=== PATIENT | male | born 1965 | race Caucasian/White ===

== ENCOUNTER 2016-10-31 16:34 | Emergency (ER) | payer OTHER, MEDICAID ==
[~2016-10-31] VITALS: Ht 147.3 cm; Wt 54.4 kg
--- NOTE | 2016-10-31 16:34 | NUR ---
Patient was BIBA (Bayron balderas) at this time.
[2016-10-31 16:40] VITALS: BP 98/70
[2016-10-31] MEDS ORDERED: ONFI20 MG GT ×2 (16:57)
[2016-10-31] MEDS ORDERED: CIPROFLOXA500 MG/51 GT (16:57)
[2016-10-31] MEDS ORDERED: BANZEL40 MG/ML PO ×2 (16:57)
[2016-10-31] MEDS ORDERED: BENZTROPINE GT (16:57)
[2016-10-31] MEDS ORDERED: ONFI10 MG GT (16:57)
[2016-10-31] MEDS ORDERED: CIPROFLOXA400 MG/40 IV (16:57)
[2016-10-31] MEDS ORDERED: THERA-M W/MINER1 TAB GT (16:57)
[2016-10-31] MEDS ORDERED: FAMOTIDINE20 M2 GT (16:57)
[2016-10-31] MEDS ORDERED: LAMOTRIGINE200 MG GT ×2 (16:57)
--- NOTE | 2016-10-31 17:27 | NUR ---
Patient taken to bed 07 via gurney per EMS.
--- NOTE | 2016-10-31 17:48 | NUR ---
Dr. Gil evaluating patient at bedside.
--- NOTE | 2016-10-31 17:51 | NUR ---
51[facility]. Caregiver at bedside and states the patient was admitted to [facility] on 10/26/16 for sigmoid fecal impaction, obstruction. Pt was discharged today from [facility] and sent back to [facility], per EMS, caregiver states he did not look well called 911 to have him evaluated. Per EMS, [facility] reported to them that he had a bowel movement prior to being discharged today. Patient is non verbal, rigid contractures note to upper extremities and bilateral lower extremities flaccid. Pt unable to ambulate, quadraplegic. Lungs clear bilaterally. G-tube noted. Abd soft, tender with palpation to lower abd. Hypoactive bowel sounds to lower quadrants bilaterally. Pt found in a brief. Incontinent. Pt unable to make his needs know. Pt placed in a gown, placed on threat monitoring analyst, pulse oximetry and blood pressure monitoring. VSS.
--- NOTE | 2016-10-31 18:16 | NUR ---
Urine bag applied to collect urine specimen.
--- NOTE | 2016-10-31 18:47 | NUR ---
Patient appears to be resting comfortably in bed. Vital Signs within normal limits. Respirations even and unlabored. Caregiver Chloé at bedside.
--- NOTE | 2016-10-31 18:49 | NUR ---
PARTS IDENTIFICATION TECHNICIAN AT BEDSIDE. PT TO BE TAKEN TO CT VIA GURNEY.
--- NOTE | 2016-10-31 19:08 | NUR ---
Patient back from CT via [facility].
--- NOTE | 2016-10-31 19:16 | NUR ---
Pt report given to Celeste SOUZA. Transfer of care at this time.
[2016-10-31] MEDS ORDERED: POTASSIUM CHLORIDE 10 MEQ TABER PO ONE (20:40)
--- NOTE | 2016-10-31 21:27 | NUR ---
PT HAD A LARGE LOOSE BOWEL MOVEMENT. PT'S DIAPER CHANGED, ASSISTED BY EMT. NO VOMMITING NOTED UP TO THIS POINT.
--- NOTE | 2016-10-31 21:48 | NUR ---
Patient to be transferred to [facility]. LIBBY MALDONADO,ACCEPTING NURSE. ER physician has signed transfer form. Patient or responsible libertarian has agreed to transfer and signed form. Patient belongings inventoried and will be sent with patient. Copy of nursing notes, lab reports, EKG, Physicians Orders and X-rays to be sent with patient. Report called to LIBBY MALDONADO at receiving facility. [facility] ambulance service has been called for transfer. ETA is 45 MINUTES.
--- NOTE | 2016-10-31 22:25 | NUR ---
[facility] refusing to accept pt back due to "not having a nurse", but on-call RN, Juan, contacted per this freelance writer and established his responsibility. Juan stated he will arrange with staff to accept, "give me 30 minutes".
--- NOTE | 2016-10-31 22:30 | NUR ---
PT RESTING AWATING FOR [facility] TO TRASFER TO [facility]. VSS. NO S/S OF DISTRESS NOTED SO FAR.
--- NOTE | 2016-10-31 22:42 | NUR ---
[facility] to accept pt back at facility. Transport ETA 45 minutes.
--- NOTE | 2016-10-31 23:35 | NUR ---
PT HAD A SEIZURE FOR APPROXINATELLY 20 SECONDS. VSS, ER MD AND CHARGE NURSE NOTIFIED. NO MORE S/S OF DISTRESS NOTED AT THIS TIME. WILL CONT TO MONITOR.
[2016-10-31] MEDS ORDERED: LORazepam 2 MG/ML VIAL IM/IVP ONE (23:45)
[2016-10-31] MEDS ORDERED: LORazepam 2 MG/ML VIAL ONE (23:50)
[2016-11-01 00:03] VITALS: BP 107/72
--- NOTE | 2016-11-01 00:15 | NUR ---
PT TAKEN BY EMELY. PT SLEEPING, VSS, NO S/S OF DISTRESS ON D/C.
== END 2016-11-01 00:15 ==
LOC: MED 16:34
DX: K56.41 Fecal impaction (principal); G80.9 Cerebral palsy, unspecified
CPT/HCPCS: 36415; 74176; 80053; 81001; 82150; 83690; 85025; 96374; 99285; C1758; J2060

== ENCOUNTER 2022-03-23 06:40 | Inpatient (IN) | payer OTHER, MEDICAID ==
[~2022-03-23] VITALS: Ht 147.3 cm; Wt 46.7 kg
[2022-03-23 06:40] VITALS: BP 150/80
[~2022-03-23 06:40] MED LIST: BENZ1SOL GT; CIPR500P4 GT; CLOB10TA GT; CLOB20TA GT; FAMO20TA13 GT; MULT-1528 GT; [UNRECOGNIZED DRUG - CODE] GT; [UNRECOGNIZED DRUG - CODE] IV; [UNRECOGNIZED DRUG - CODE] PO
--- NOTE | 2022-03-23 06:40 | NUR ---
Place patient on bed 6.
--- NOTE | 2022-03-23 07:21 | NUR ---
Pt report given to mckayla. Transfer of care at this time.
--- NOTE | 2022-03-23 07:30 | NUR ---
56 Y.O. M YUE FROM [facility]. C/O G-tube malfunction x today. Per reported, Patient had G-tube Malfunction. G-TUBE IS CLOOGED. PT IS CONTACTED AND INCOMPREHENSIBLE BUT DOES LOOK AT YOU WHEN YOU CALL HIS NAME. IN A BRIEF DUE TO INCONT, SKIN INTACT, VITALS STABLE AND WNL, AND IS BED BOUND. PMHx: Profound Intellectual Disability, Seizure, GERD, Cerebral Palsy, Quadriplegia.
[2022-03-23] MEDS ORDERED: NACL 0.9% 1,000 ML IV ONE (10:25)
--- NOTE | 2022-03-23 10:51 | NUR ---
Leslee cooley in ED - 03/23/22 at 1052 by ANALI ENOC AND GAVE TO DIRECTOR OF RESEARCH IN ER
--- NOTE | 2022-03-23 10:52 | NUR ---
ENOC COLLECTED AND GAVE TO ADMINISTRATIVE RESIDENT IN ER
[2022-03-23 11:29] LABS: BASOPHILS % (AUTO) 0.4 % (0.0-2.0); EOSINOPHILS # (AUTO) 0.3 K/uL (0-0.4); EOSINOPHILS % (AUTO) 3.9 % (0.0-4.0); HEMATOCRIT 42.9 % (36-52); HEMOGLOBIN 14.5 g/dL (12.0-18.0); LYMPHOCYTES # (AUTO) 1.8 K/uL (2.0-11.5); LYMPHOCYTES % (AUTO) 23.1 % (20.5-51.1); MEAN CORPUSCULAR HEMOGLOBIN 33 pg (27-31); MEAN CORPUSCULAR HGB CONC 34 g/dL (33-37); MEAN CORPUSCULAR VOLUME 98.5 fL (80-94); MONOCYTES # (AUTO) 0.6 K/uL (0.8-1.0); MONOCYTES % (AUTO) 8.1 % (1.7-9.3); NEUTROPHILS # (AUTO) 5.1 K/uL (1.8-7.7); NEUTROPHILS % (AUTO) 64.5 % (42.2-75.2); PLATELET COUNT (AUTO) 272 K/uL (140-450); RED BLOOD CELL COUNT(AUTO) 4.35 MIL/uL (4.20-6.10); RED CELL DISTRIBUTION WIDTH 13.5 % (11.6-13.7); WHITE BLOOD COUNT (AUTO) 7.9 K/uL (4.8-10.8)
[2022-03-23] MEDS: DEXT 5% / NACL 0.45% 1,000 ML IV SCH ×2 (11:33→22:25)
[2022-03-23 11:55] LABS: ALBUMIN 3.5 g/dL (3.4-5.0); ANION GAP 12.1 (8-16); CARBON DIOXIDE 28.1 mmol/L (21-32); CREATININE 0.6 mg/dL (0.6-1.3); POTASSIUM 4.2 mmol/L (3.5-5.1); TOTAL BILIRUBIN 0.4 mg/dL (0.0-1.0)
--- NOTE | 2022-03-23 12:00 | NUR ---
PT RESTING IN BED. ALL NEEDS MEET AT THIS TIME.
[2022-03-23] MEDS ORDERED: ONDANSETRON 4 MG/2 ML VIAL IVP PRN (12:15)
[2022-03-23] MEDS ORDERED: PUL.5N NEB (12:53)
[2022-03-23] MEDS ORDERED: LACT100C5 GT (12:53)
[2022-03-23] MEDS ORDERED: LACO200T GT (13:12)
[2022-03-23] MEDS ORDERED: CLOB10TA GT (13:12)
[2022-03-23] MEDS ORDERED: MIRABULK GT (13:16)
[2022-03-23] MEDS ORDERED: LAM200 GT ×2 (13:16)
[2022-03-23] MEDS ORDERED: RUFI400T GT ×2 (13:16→13:17)
[2022-03-23] MEDS ORDERED: MULT-2247 GT (13:18)
--- NOTE | 2022-03-23 14:17 | NUR ---
PT HAD TONIC CLONIC SEIZURE LASTING APPROX [address] SEC[address]DS. NO TRAUMA NOTED. DR ZAIRE RIOS, SPOKE WITH . RECEIVED TELEPHONE ORDER OF KEPPRA 500MG IV Q12HRS AND DIAZEPAM 2MG IV Q6HR PRN FOR SEIZURES
[2022-03-23] MEDS ORDERED: DIAZEPAM PFS 10 MG/2 ML SYR IVP PRN (14:20)
--- NOTE | 2022-03-23 15:00 | NUR ---
Patient will be admitted to care of DR. TAI. Admited to [facility]. Will go to room 112 B. Belongings list completed. Report to JACKIE.
--- NOTE | 2022-03-23 15:04 | NUR ---
PATIENT HAS BEEN SCREENED AND CATEGORIZED HIGH NUTRITION RISK. PATIENT WILL BE SEEN WITHIN 1-2 DAYS OF ADMISSION. 03/23/22-03/24/[address]
[2022-03-23] MEDS: levETIRAcetam 500 MG in NACL 0.9% 100 ML IV SCH ×2 (16:30→22:21)
[2022-03-23 20:00] VITALS: BP 128/69
--- NOTE | 2022-03-23 20:00 | NUR ---
RECEIVED REPORT FROM MORNING SHIFT NURSE HEMANT AMOS. PT WAS ADMITTED TO [facility] DEPT AT 5PM ACCORDING TO HIM BUT ACCORDING TO CHARGE NURSE IT WAS ADMITTED AT 1500. NO ADMISSION REPORT AND CHARTING WAS MADE BY THE MORNING SHIFT NURSE. IV D5NS WAS HUNG RUNNING AT 100 ML/HR. INSTEAD OF DEXTROSE/SODIUM 5%- 0.45% WITHOUT IV PUMP. PT IS SLEEPING. CHEST RISE AND FALL SYMMETRICALLY NOTED. RESPIRATION IS EVEN AND UNLABORED. ALL SAFETY MEASURES IMPLEMENTED. CALL LIGHT WITHIN REACH. BED WHEELS LOCKED AND BED IN LOW POSITION.
[2022-03-23] MEDS ORDERED: levETIRAcetam 500 MG in NACL 0.9% 100 ML IV SCH (21:00)
--- NOTE | 2022-03-23 21:31 | NUR ---
03/23/2022 RD INITIAL ASSESSMENT COMPLETED PLEASE REFER TO NUTRITION ASSESSMENT UNDER CARE ACTIVITY FOR ESTIMATED NUTRITIONAL NEEDS. 1.WHEN/IF MEDICALLY APPROPRIATE, RECOMMEND JEVITY 1.2 WITH A GOAL RATE OF 45ML/HR. -START AT 10ML/HR AND INCREASE BY 10 ML EVERY 4 HOURS UNTIL GOAL RATE OF 45ML/HR IS REACHED. -FWF 100ML Q8H 2.MONITOR NPO STATUS 3.RD TO FOLLOW-UP IN 2-3 DAYS PATIENT IS HIGH RISK. JET LEVI RD
[2022-03-23] MEDS ORDERED: levETIRAcetam 100 MG/ML VIAL IV ONE (22:18)
--- NOTE | 2022-03-23 22:21 | NUR ---
ALL SCHEDULED MEDICATION WAS GIVEN TO PT PER MD ORDER. PT TOLERATED IT WELL. ALL SAFETY MEASURES IMPLEMENTED. CALL LIGHT WITHIN REACH, BED WHEELS ON LOCKED AND BED IN LOW POSITION.
--- NOTE | 2022-03-24 | NUR ---
PT IS ON SLEEP. CHEST RISE AND FALL SYMMETRICALLY NOTED. RESPIRATION IS EVEN AND UNLABORED. NO S/S OF RESPIRATORY DISTRESS. ALL SAFETY MEASURES IMPLEMENTED. CALL LIGHT WITHIN REACH, BED WHEELS LOCKED AND BED IN LOW POSITION.
[2022-03-24 04:00] VITALS: BP 121/60
[2022-03-24 06:42] LABS: BASOPHILS % (AUTO) 0.2 % (0.0-2.0); EOSINOPHILS # (AUTO) 0.3 K/uL (0-0.4); EOSINOPHILS % (AUTO) 6.2 % (0.0-4.0); HEMATOCRIT 42.1 % (36-52); HEMOGLOBIN 14.3 g/dL (12.0-18.0); LYMPHOCYTES # (AUTO) 1.5 K/uL (2.0-11.5); LYMPHOCYTES % (AUTO) 31.2 % (20.5-51.1); MEAN CORPUSCULAR HEMOGLOBIN 33 pg (27-31); MEAN CORPUSCULAR HGB CONC 34 g/dL (33-37); MEAN CORPUSCULAR VOLUME 98.5 fL (80-94); MONOCYTES # (AUTO) 0.5 K/uL (0.8-1.0); MONOCYTES % (AUTO) 11.4 % (1.7-9.3); NEUTROPHILS # (AUTO) 2.4 K/uL (1.8-7.7); PLATELET COUNT (AUTO) 248 K/uL (140-450); RED BLOOD CELL COUNT(AUTO) 4.27 MIL/uL (4.20-6.10); RED CELL DISTRIBUTION WIDTH 13.7 % (11.6-13.7); WHITE BLOOD COUNT (AUTO) 4.8 K/uL (4.8-10.8)
[2022-03-24] MEDS: DEXT 5% / NACL 0.45% 1,000 ML IV SCH ×2 (06:47→20:37)
[2022-03-24 06:57] LABS: ALBUMIN 3.4 g/dL (3.4-5.0); ANION GAP 11.2 (8-16); CARBON DIOXIDE 28.7 mmol/L (21-32); CREATININE 0.5 mg/dL (0.6-1.3); POTASSIUM 4.9 mmol/L (3.5-5.1); TOTAL BILIRUBIN 0.5 mg/dL (0.0-1.0)
--- NOTE | 2022-03-24 07:31 | NUR ---
PT IS STABLE. ENDORSED PT TO MORNING SHIFT NURSE, FOR CONTINUITY OF CARE.
[2022-03-24 08:00] VITALS: BP 118/62
[2022-03-24] MEDS: levETIRAcetam 500 MG in NACL 0.9% 100 ML IV SCH ×2 (09:00→21:00)
--- NOTE | 2022-03-24 09:00 | NUR ---
PT. WITH LOW TORRES SCALE AT MODERATE TO HIGH RISK, CONTINUE TO FOLLOW PRESSURE INJURY PREVENTION INTERVENTIONS. -POSITIONING: TURN AND REPOSITION PATIENT Q 2H OR SOONER USE PILLOWS TO KEEP BONY PROMINENCES FROM DIRECT CONTACT WITH SURFACES USE REPOSITIONING WEDGES TO PROVIDE 30-DEGREE ANGLE FOR SIDE LYING POSITIONS OFFLOADING OR FOAM DRESSING TO ALL TUBING TO PREVENT MEDICAL DEVICES RELATED PRESSURE INJURY -RE-EVALUATING AND MANAGING INCONTINENCE MONITOR SKIN CONDITION DURING POSITION CHANGE DO NOT MASSAGE REDNESS, BONY PROMINENCES FREQUENT RAZA-CARE AND PROVIDE BARRIER CREAMS PRN IF SOILING MOISTURE CONTROL BY OFFER BED MAK/URINAL /ABSORBENT PAD TO WICK AND HOLD MOISTURE KEEP SKIN DRY AND PROTECT FROM FRICTION -MANAGE FRICTION/SHEAR/MOBILITY KEEP HOB AT THE LOWEST LEVEL OF ELEVATION NO MORE THAN 30 DEGREE UNLESS OTHERWISE CONTRAINDICATED USE LIFT SHEET OR TRANSFER DEVICE TO MOVE PATIENT AND PREVENT LATERAL SHEER. PROTECT HEELS, ELBOWS BONY PROMINENCES WITH SKIN BERRIES OR FOAM DRESSING IF EXPOSED TO FRICTION OFFLOAD BILATERAL HEELS BY PLACING PILLOWS UNDER CALVES AT ALL TIMES, UNLESS OTHERWISE CONTRAINDICATED -PRESSURE REDISTRIBUTION SURFACE THERAPY KACEY ISOFLEX MATTRESS -NUTRITION: PLEASE FOLLOW RD RECOMMENDATIONS AND OFFER NUTRITION SUPPLEMENTS IF ORDERED. PLEASE CONTACT WOUND CARE NURSE FOR ANY QUESTION AND CHANGE OF WOUND CONDITION.
[2022-03-24] MEDS ORDERED: HYDROmorphone 1 MG/ML AMP IVP SCH (11:46)
[2022-03-24 12:00] VITALS: BP 124/68
[2022-03-24] MEDS ORDERED: bisacodyL 10 MG SUPP RC SCH (12:30)
--- NOTE | 2022-03-24 13:08 | NUR ---
DC [age] YRS OLD MALE PATIENT WAS ADMITTED FROM [facility] WITH A DX OF G-TUBE MALFUNCTION. PATIENT HAS A HX OF SEIZURE DISORDER, INTELLECTUAL DISABILITY , GERD ,CEREBRAL PALSY QUADRIPLEGIA. CONTINUED HOME MEDS. CONSULTED WITH GI DR SILVA. DC PLAN TO RETURN TO [facility]. CM TO FOLLOW
[2022-03-24 16:00] VITALS: BP 111/60
[2022-03-24] MEDS ORDERED: SODIUM PHOSPHATE 118 ML ENEM RC SCH (16:00)
[2022-03-24] MEDS ORDERED: SODIUM PHOSPHATE 118 ML ENEM RC ONE (17:10)
--- NOTE | 2022-03-24 19:30 | NUR ---
RECEIVED REPORT FROM DAY SHIFT NURSE FOR CONTINUITY OF CARE. PATIENT IS A&O X 2, DEVELOPMENTAL DELAY. PATIENT IS LYING IN BED SUPINE WITH BOTH ARMS CONTRACTED. PATIENT CURRENTLY HAS NO IV DUE TO RIPPING OUT EARLIER. PATIENT IS ON ROOM AIR, BREATHING IS NORMAL WITH SYMMETRICAL RISE AND FALL OF CHEST. BED IS IN LOWEST POSITION. WILL CONTINUE TO OBSERVE PATIENT.
[2022-03-24 20:00] VITALS: BP 127/50
--- NOTE | 2022-03-24 21:30 | NUR ---
UNABLE TO INSERT IV. LIBBY GRAVES ATTEMPTED TO INSERT IV AND WAS UNABLE TO. WILL TRY AGAIN LATER. PATIENT IS A&OX1, LYING SUPINE. BREATHING IS SYMMETRICAL WITH RISE AND FALL OF CHEST. WILL CONTINUE TO OBSERVE PATIENT.
--- NOTE | 2022-03-24 21:45 | NUR ---
ADMINISTERED 2100 MEDICATIONS TO PATIENT AT 2138. PATIENT TOLERATED WELL. PATIENT WAS SLEEPING IN HIGH FOWLERS POSITION. COLOSTOMY BAG IS EMPTY. PATIENT IS DEMONSTRATING ACTIVE BOWEL MOVEMENTS WITH PASSING OF GAS. PATIENT'S BED IS IN LOWEST POSITION, WHEELS LOCKED, CALL LIGHT IN REACH. PATIENT REQUESTED LIGHT BE TURNED OFF SO HE CAN GO BACK TO SLEEP. TURNED OFF LIGHT UPON EXITING ROOM. WILL CONTINUE TO OBSERVE. Addendum: 03/24/22 at 5658 by Burton Hedrick RN WRONG PATIENT. PLEASE DISREGARD NOTATION.
--- NOTE | 2022-03-24 23:00 | NUR ---
ATTEMPTED TO INSERT IV WITH KELLIE SOUZA. WE WERE UNABLE TO INSERT IV. PATIENT IS A&O X1. PATIENT IS BREATHING NORMALLY. WILL CONTINUE TO OBSERVE PATIENT.
--- NOTE | 2022-03-25 04:40 | NUR ---
MESSAGED DR. TAI ABOUT INABILITY TO GET IV INTO PATIENT AND IF IT IS OKAY TO STICK IV IN FOOT. PENDING DOCTOR'S REPLY.
--- NOTE | 2022-03-25 06:00 | NUR ---
DOCTOR AUTHORIZED INSERTION OF IV INTO FOOT.
[2022-03-25 07:13] LABS: BASOPHILS % (AUTO) 0.3 % (0.0-2.0); EOSINOPHILS # (AUTO) 0.3 K/uL (0-0.4); EOSINOPHILS % (AUTO) 5.5 % (0.0-4.0); HEMATOCRIT 41.1 % (36-52); HEMOGLOBIN 13.8 g/dL (12.0-18.0); LYMPHOCYTES # (AUTO) 1.5 K/uL (2.0-11.5); LYMPHOCYTES % (AUTO) 25.5 % (20.5-51.1); MEAN CORPUSCULAR HEMOGLOBIN 33 pg (27-31); MEAN CORPUSCULAR HGB CONC 34 g/dL (33-37); MEAN CORPUSCULAR VOLUME 98.3 fL (80-94); MONOCYTES # (AUTO) 0.6 K/uL (0.8-1.0); MONOCYTES % (AUTO) 10.1 % (1.7-9.3); NEUTROPHILS # (AUTO) 3.3 K/uL (1.8-7.7); NEUTROPHILS % (AUTO) 58.6 % (42.2-75.2); PLATELET COUNT (AUTO) 252 K/uL (140-450); RED BLOOD CELL COUNT(AUTO) 4.18 MIL/uL (4.20-6.10); RED CELL DISTRIBUTION WIDTH 13.7 % (11.6-13.7); WHITE BLOOD COUNT (AUTO) 5.7 K/uL (4.8-10.8)
[2022-03-25 07:26] LABS: CARBON DIOXIDE 25.9 mmol/L (21-32); CREATININE 0.4 mg/dL (0.6-1.3); POTASSIUM 3.9 mmol/L (3.5-5.1)
--- NOTE | 2022-03-25 07:45 | NUR ---
ENDORSED CONTINUITY OF CARE TO DAY SHIFT. PATIENT IS STABLE.
--- NOTE | 2022-03-25 07:48 | NUR ---
Got report from the night nurse , pt sleeping , no SOB. [id number]
[2022-03-25 08:00] VITALS: BP 120/65
[2022-03-25] MEDS: levETIRAcetam 500 MG in NACL 0.9% 100 ML IV SCH ×2 (09:21→20:45)
[2022-03-25] MEDS: DEXT 5% / NACL 0.45% 1,000 ML IV SCH (12:13)
[2022-03-25 16:00] VITALS: BP 138/64
--- NOTE | 2022-03-25 19:25 | NUR ---
RECD REPORT FROM AM NURSE, PATIENT RESTING COMFORTABLY IN BED, A/OX1, MENTALLY CHALLENGED. RESPIRATION EVEN AND UNLABORED. IV OF D5 0.45% NS INFUSING AT 60 ML/HR, RIGHT LOWER EXTREMITY. WITH BILATERAL UPPER AND LOWER EXTREMITY CONTRACTURES. SAFETY MEASURES ENFORCED, SIDE RAILS UP WITH PADS FOR SEIZURE PRECAUTION. NO APPEARANCE OF PAIN OR DISCOMFORT NOTED, FLACC - 0.
--- NOTE | 2022-03-25 20:45 | NUR ---
RESTING COMFORTABLY IN BED. IVPB KEPPRA ADMINISTERED BY LIBBY VALDOVINOS.
--- NOTE | 2022-03-25 23:00 | NUR ---
CLEANSED AND DIAPER CHANGED BY TUBE REPAIRER. REPOSITIONED IN BED WITH PILLOWS.
[2022-03-25] MEDS ORDERED: SODIUM PHOSPHATE 118 ML ENEM RC SCH (23:35)
--- NOTE | 2022-03-25 23:50 | NUR ---
RT CAME AND PUT PATIENT ON BIPAP. 02 SAT - 96%. Addendum: 03/26/22 at 0127 by Radha Degroot LVN NOTE: ERROR. THIS CHARTING IS NOT FOR THIS PATIENT.
[2022-03-26] VITALS: BP 122/50
--- NOTE | 2022-03-26 01:26 | NUR ---
FLEET ENEMA ADMINISTERED PER MD ORDER. ABLE TO INSERT FLEET ENEMA TIP BUT STOOLS BLOCKED THE ENTRANCE, ABLE TO PUSH SOLUTION BUT CANNOT GET INTO THE PASSAGE. WILL INFORM MD.
--- NOTE | 2022-03-26 03:00 | NUR ---
NO BM DURING THE SHIFT. CLEANSED AND REPOSITIONED IN BED WITH HELP OF OUTSOLE ROUNDER.
[2022-03-26] MEDS: DEXT 5% / NACL 0.45% 1,000 ML IV SCH ×2 (05:07→05:40)
[2022-03-26 06:58] LABS: BASOPHILS % (AUTO) 0.5 % (0.0-2.0); EOSINOPHILS # (AUTO) 0.4 K/uL (0-0.4); EOSINOPHILS % (AUTO) 6.6 % (0.0-4.0); HEMATOCRIT 39.7 % (36-52); HEMOGLOBIN 13.6 g/dL (12.0-18.0); LYMPHOCYTES # (AUTO) 1.1 K/uL (2.0-11.5); LYMPHOCYTES % (AUTO) 17.2 % (20.5-51.1); MEAN CORPUSCULAR HEMOGLOBIN 33 pg (27-31); MEAN CORPUSCULAR HGB CONC 34 g/dL (33-37); MEAN CORPUSCULAR VOLUME 97.3 fL (80-94); MONOCYTES # (AUTO) 0.6 K/uL (0.8-1.0); MONOCYTES % (AUTO) 9.2 % (1.7-9.3); NEUTROPHILS # (AUTO) 4.1 K/uL (1.8-7.7); NEUTROPHILS % (AUTO) 66.5 % (42.2-75.2); PLATELET COUNT (AUTO) 241 K/uL (140-450); RED BLOOD CELL COUNT(AUTO) 4.08 MIL/uL (4.20-6.10); RED CELL DISTRIBUTION WIDTH 13.2 % (11.6-13.7); WHITE BLOOD COUNT (AUTO) 6.1 K/uL (4.8-10.8)
[2022-03-26 07:05] LABS: CARBON DIOXIDE 25.2 mmol/L (21-32); CREATININE 0.5 mg/dL (0.6-1.3); POTASSIUM 4.2 mmol/L (3.5-5.1)
--- NOTE | 2022-03-26 07:35 | NUR ---
ENDORSED TO AM SHIFT NURSE FOR CONTINUITY OF CARE.
--- NOTE | 2022-03-26 07:36 | NUR ---
RECEIVED REPORT FROM RADIOLOGY PHYSICIAN NURSE. PATIENT LYING DOWN IN BED AWAKE, ORIENTED TO SELF, APHASIC. NO DISTRESS NOTED. BUE CONTRACTURES NOTED. IV SITE INTACT, PATENT, AND INFUSING IVF PER MD ORDERS. GTUBE SITE INTACT, PATENT, NPO AT THIS TIME. REVIEWED PLAN OF CARE WITH PATIENT, VERBALIZED UNDERSTANDING. SAFETY MEASURES IN PLACE, CALL LIGHT WITHIN REACH. WILL CONTINUE TO MONITOR.
[2022-03-26 08:00] VITALS: BP 113/51
[2022-03-26] MEDS: levETIRAcetam 500 MG in NACL 0.9% 100 ML IV SCH (08:38)
--- NOTE | 2022-03-26 08:38 | NUR ---
SCHEDULED MEDICATIONS DUE GIVEN. WILL CONTINUE TO MONITOR.
[2022-03-26] MEDS ORDERED: bisacodyL 10 MG SUPP RC SCH (12:00)
[2022-03-26] MEDS: LACTULOSE 20 GM/30 ML UDC PO SCH ×2 (12:24→17:00)
[2022-03-26] MEDS: POLYETHYLENE GLYCOL 17 GM/PKT PO SCH ×3 (12:25→21:43)
[2022-03-26] MEDS: SENNA 8.6 MG TAB PO SCH ×2 (12:25→17:00)
--- NOTE | 2022-03-26 12:26 | NUR ---
SCHEDULED MEDICATIONS DUE GIVEN. WILL CONTINUE TO MONITOR.
--- NOTE | 2022-03-26 13:56 | NUR ---
03/26/22 RD FOLLOW UP COMPLETED PLEASE REFER TO NUTRITION ASSESSMENT UNDER CARE ACTIVITY FOR ESTIMATED NUTRITIONAL NEEDS. 1. WHEN/IF MEDICALLY APPROPRIATE, RECOMMEND INCREASING JEVITY 1.2 GOAL RATE TO 45ML/HR TOLERATED -INCREASE BY 10 ML Q4H UNTIL GOAL RATE OF 45ML/HR IS REACHED -FWF: 100ML Q6H OR PER MD -WILL PROVIDE 1296 KCAL AND 60 GM PROTEIN, MEETING 100% OF ESTIMATED NUTRIENT NEEDS 2. RECOMMEND PROSOURCE TID FOR NUTRITION SUPPORT AND WOUND HEALING 3. RD TO FOLLOW-UP IN 2-3 DAYS; HIGH RISK. MG ROYAL RD
[2022-03-26 16:00] VITALS: BP 111/64
--- NOTE | 2022-03-26 18:00 | NUR ---
JORDAN (RN FROM [facility]) CALLED REGARDING PATIENT'S DISCHARGE ORDER RECENTLY PLACED BY . PER JORDAN, NO TRANSPORTATION TONIGHT. EARLIEST IS 0600 TOMORROW. NOTIFIED CHICKEN BONER JOWIE. VERBALIZED UNDERSTANDING. NOTIFIED Terrell GOODRICH VERBALIZED UNDERSTANDING AND SAID "OK".
--- NOTE | 2022-03-26 18:07 | NUR ---
SEEN BY DR. TAI WITH DC ORDER. CALLED THE [facility] AND THEY SAID NO ONE CAN PICK HIM UP UNTIL TOMORROW MORNING. PAGED DR. TAI AND HE SAID OK TO DC TOMORROW.
--- NOTE | 2022-03-26 18:07 | NUR ---
SCHEDULED MEDICATIONS DUE GIVEN. WILL CONTINUE TO MONITOR.
--- NOTE | 2022-03-26 19:17 | NUR ---
GAVE REPORT TO PLASTICATOR NURSE FOR CONTINUITY OF CARE. PATIENT IN STABLE CONDITION.
--- NOTE | 2022-03-26 20:00 | NUR ---
Patient's Plan of Care was discussed and reviewed with KELLIE: ANTONIO
[2022-03-26] MEDS ORDERED: RUFINAMIDE 800 MG PO SCH (21:00)
[2022-03-26] MEDS ORDERED: BUDESONIDE 0.5 MG/2 ML NEBU INH SCH (21:00)
[2022-03-26] MEDS ORDERED: LACTOBACILLUS ACIDOPHILUS 0.5 MG GT SCH (21:00)
[2022-03-26] MEDS ORDERED: MAGNESIUM CITRATE 300 ML BTL PO SCH (21:00)
--- NOTE | 2022-03-26 21:42 | NUR ---
SCHEDULED MEDICATIONS FOR THE NIGHT ADMINISTERED.
--- NOTE | 2022-03-26 23:30 | NUR ---
HAD A LARGE LOOSE BM. CLEANSED AND MADE COMFORTABLE IN BED WITH PILLOWS.
[2022-03-27] VITALS: BP 137/48
--- NOTE | 2022-03-27 00:30 | NUR ---
SHOUTING IN BED, NO APPARENT DISTRESS NOTED. MADE COMFORTABLE IN BED WITH PILLOWS.
--- NOTE | 2022-03-27 02:30 | NUR ---
SLEEPING COMFORTABLY IN BED, NO APPARENT DISTRESS NOTED.
[2022-03-27 03:19] VITALS: BP 132/55
--- NOTE | 2022-03-27 05:00 | NUR ---
HAD LARGE LOOSE BM. CLEANSED AND DIAPER CHANGED DONE.
--- NOTE | 2022-03-27 06:30 | NUR ---
DIPLOMA MAKER OF [facility] FELICITY CAME WITH ONE FREELANCE TRANSLATOR TO TAKE PATIENT BACK TO [facility] [place].
--- NOTE | 2022-03-27 06:45 | NUR ---
ENDORSED TO MANAGER PRODUCE PATIENT. TAKEN VIA W/C IN STABLE CONDITION TO WAITING VEHICLE FOR PATIENT BACK TO SNF.
[2022-03-27 07:30] LABS: BASOPHILS % (AUTO) 0.2 % (0.0-2.0); EOSINOPHILS # (AUTO) 0.1 K/uL (0-0.4); EOSINOPHILS % (AUTO) 0.5 % (0.0-4.0); HEMATOCRIT 44.2 % (36-52); HEMOGLOBIN 15.1 g/dL (12.0-18.0); LYMPHOCYTES % (AUTO) 10.4 % (20.5-51.1); MEAN CORPUSCULAR HEMOGLOBIN 33 pg (27-31); MEAN CORPUSCULAR HGB CONC 34 g/dL (33-37); MEAN CORPUSCULAR VOLUME 97.7 fL (80-94); MONOCYTES # (AUTO) 0.8 K/uL (0.8-1.0); MONOCYTES % (AUTO) 8.5 % (1.7-9.3); NEUTROPHILS # (AUTO) 8.1 K/uL (1.8-7.7); NEUTROPHILS % (AUTO) 80.4 % (42.2-75.2); PLATELET COUNT (AUTO) 275 K/uL (140-450); RED BLOOD CELL COUNT(AUTO) 4.52 MIL/uL (4.20-6.10); RED CELL DISTRIBUTION WIDTH 13.3 % (11.6-13.7)
[2022-03-27 07:32] LABS: ANION GAP 14.5 (8-16); CARBON DIOXIDE 24.8 mmol/L (21-32); CREATININE 0.5 mg/dL (0.6-1.3); POTASSIUM 3.3 mmol/L (3.5-5.1)
[2022-03-27] MEDS ORDERED: POLYETHYLENE GLYCOL 17 GM/PKT GT SCH (09:00)
[2022-03-27] MEDS ORDERED: RUFINAMIDE PO SCH (09:00)
[2022-03-27] MEDS ORDERED: MULTIVIT/MIN/CA/FE/FA 1 TAB GT SCH (09:00)
== END 2022-03-27 06:45 | disposition home or self-care (01) | DRG 393 ==
LOC: MED 06:40 → MTU 11:05
PROVIDERS: ADMIT Preventive Medicine Preventive Medicine/Occupational Environmental Medicine; ATTEND Preventive Medicine Preventive Medicine/Occupational Environmental Medicine
PROC: 0DP6XUZ Removal of Feeding Device from Stomach, External Approach (ICD-10-PCS; principal; 2022-03-23)
DX: K94.23 Gastrostomy malfunction (principal); G82.50 Quadriplegia, unspecified; F73 Profound intellectual disabilities; G40.909 Epilepsy, unspecified, not intractable, without status epilepticus; K21.9 Gastro-esophageal reflux disease without esophagitis; Z20.822 Contact with and (suspected) exposure to COVID-19; K59.00 Constipation, unspecified; Z91.09 Other allergy status, other than to drugs and biological substances; Z79.899 Other long term (current) drug therapy; R79.89 Other specified abnormal findings of blood chemistry
CPT/HCPCS: 36415; 74018; 80048; 80053; 85025; 99285; J1170; J1953; Q0092